=== PATIENT | male | born 1965 | race Caucasian/White ===

== ENCOUNTER 2019-11-20 18:16 | Emergency (ER) | payer OTHER ==
[~2019-11-20] VITALS: Ht 177.8 cm; Wt 88.9 kg
[2019-11-20 18:23] VITALS: BP 153/88
--- NOTE | 2019-11-20 18:27 | NUR ---
PT AMBULATED TO CHAIR A , STEADY GAIT.
--- NOTE | 2019-11-20 18:35 | NUR ---
L KNEE PAIN X 5 DAYS, PT REPORTS HE TWISTED HIS KNEE WHILE WALKING. NO EDEMA, ERYTHEMA, BRUISING, OR DEFORMITY NOTICED ON RT KNEE. DRAWER TEST AND THEODORE TEST NEGATIVE. PATIENT STATES PAIN OF 7/10 AT THIS TIME UPON MOVEMENT; VSS; PATIENT POSITIONED FOR COMFORT IN CHAIR A. ER MD MADE AWARE OF PT STATUS.
--- NOTE | 2019-11-20 18:40 | NUR ---
Patient taken to XRAY via wheelchair by tech.
--- NOTE | 2019-11-20 19:12 | NUR ---
Pt report given to GUILLERMO Cruz. Transfer of care at this time.
[2019-11-20 19:16] VITALS: BP 140/85
--- NOTE | 2019-11-20 19:16 | NUR ---
Patient discharged with v/s stable. Written and verbal after care instructions given and explained. Patient alert, oriented and verbalized understanding of instructions. Ambulatory with steady gait. All questions addressed prior to discharge. ID band removed. Patient advised to follow up with PMD. Rx of Triacinolone and Tramodol given. Patient educated on indication of medication including possible reaction and side effects. Opportunity to ask questions provided and answered.
== END 2019-11-20 19:16 | disposition home or self-care (01) ==
LOC: MED 18:16
DX: S83.8X2A Sprain of other specified parts of left knee, initial encounter (principal); X50.9XXA Other and unspecified overexertion or strenuous movements or postures, initial encounter; Y93.89 Activity, other specified; Y92.89 Other specified places as the place of occurrence of the external cause; Y99.8 Other external cause status
CPT/HCPCS: 73562; 99283

== ENCOUNTER 2021-06-09 17:36 | Emergency (ER) | payer OTHER ==
--- NOTE | 2021-06-09 18:55 | NUR ---
CALLED IN LOBBY AND OUTSIDE. NO RESPONSE.
--- NOTE | 2021-06-09 19:05 | NUR ---
2ND CALL WITH NO ANSWER.
--- NOTE | 2021-06-09 19:30 | NUR ---
3RD CALL WITH NO ANSWER. PATIENT LEFT WITHOUT BEING SEEN BY DR. LAY. NO FURTHER CARE PROVIDED FOR PATIENT.
== END 2021-06-09 18:55 | disposition left against medical advice (07) ==
LOC: MED 17:36
DX: M25.569 Pain in unspecified knee (principal); Z53.21 Procedure and treatment not carried out due to patient leaving prior to being seen by health care provider

== ENCOUNTER 2022-03-26 06:13 | Emergency (ER) | payer OTHER ==
[~2022-03-26] VITALS: Ht 177.8 cm; Wt 90.7 kg
[2022-03-26 06:16] VITALS: BP 161/78
--- NOTE | 2022-03-26 06:24 | NUR ---
WALKED IN C/O LOWER ABDOMINAL PAIN, DIARRHEA, AND FEVER X 2 DAYS. -N/V. NO MEDS TAKEN [employer]. +SICK CONTACTS IN HOUSE WITH SIMILAR SYMPTOMS. PMH NONE
--- NOTE | 2022-03-26 06:27 | NUR ---
DR. PERSAUD IN TRIAGE FOR MSE
[2022-03-26] MEDS ORDERED: LOPE1TAB14 PO (06:55)
[2022-03-26] MEDS ORDERED: ONDA-188 PO (06:55)
[2022-03-26] MEDS ORDERED: HYD1C TP (06:55)
[2022-03-26 07:22] VITALS: BP 156/77
--- NOTE | 2022-03-26 07:23 | NUR ---
Patient discharged with v/s stable. Written and verbal after care instructions given and explained. Patient alert, oriented and verbalized understanding of instructions. Ambulatory with steady gait. All questions addressed prior to discharge. ID band removed. Patient advised to follow up with PMD. Rx of ZOFRAN ODT, IMODIUM &HYDROCORTISONE given. Patient educated on indication of medication including possible reaction and side effects. Opportunity to ask questions provided and answered.
== END 2022-03-26 07:22 | disposition home or self-care (01) ==
LOC: MED 06:13
DX: R19.7 Diarrhea, unspecified (principal); R10.9 Unspecified abdominal pain; A05.9 Bacterial foodborne intoxication, unspecified; Z79.899 Other long term (current) drug therapy
CPT/HCPCS: 81002; 99283